=== PATIENT | male | born 1955 | race Caucasian/White ===

== ENCOUNTER 2019-08-05 18:52 | Emergency (ER) | payer MEDICARE ==
[~2019-08-05] VITALS: Ht 177.8 cm; Wt 77.1 kg
[2019-08-05 18:52] VITALS: Ht 177.8 cm; Wt 77.1 kg
[2019-08-05 20:48] VITALS: BP 59/29
== END 2019-08-06 01:18 | disposition expired ==
LOC: ED 18:52 → EDBD 18:52 → ED 08-06 01:18
DX: I46.9 Cardiac arrest, cause unspecified (principal); I10 Essential (primary) hypertension; E11.9 Type 2 diabetes mellitus without complications; Z98.890 Other specified postprocedural states
CPT/HCPCS: 82962; J1720; J3490; J7030; Q0092